=== PATIENT | male | born 1990 | race Caucasian/White ===

== ENCOUNTER 2019-08-13 12:06 | Emergency (ER) | payer OTHER, SELFPAY ==
--- NOTE | ~2019-08-13 | XR_ITS ---
XR hand LT min 3V 08/13/2019 12:52 INDICATION: Left hand pain PROCEDURE: 3 views left hand COMPARISON: No prior studies for comparison. FINDINGS: Fracture, dislocation or subluxation is not identified. The soft tissues appear within norm al limits. No foreign bodies are identified. IMPRESSION: 1: NO ACUTE BONE OR JOINT ABNORMALITY IDENTIFIED. Reviewed, dictated and finalized at location A.
[2019-08-13 12:14] VITALS: BP 149/76; PULSE 76; RESP 18; TEMP 36.3; O2SAT 98
--- NOTE | 2019-08-13 12:38 | ED.WOUNDLAC ---
HPI - Wound/Laceration General Chief Complaint: Wound/Laceration Stated Complaint: LAC L HAND Time Seen by Provider: 08/13/19 12:18 Source: patient Mode of arrival: ambulatory Limitations: no limitations History of Present Illness HPI narrative: This is a 28 year old RHD male that presents to the ER for laceration to left hand. Reports he was using a chainsaw to cut brush and cut the back of his left hand. Reports laceration about the 2nd and 3rd knuckles. He is unsure of his last tetanus vaccine. Denies numbness or decreased range of motion. Related Data Home Medications Medication Instructions Recorded Confirmed No Home Medications 08/13/19 08/13/19 Allergies Allergy/AdvReac Type Severity Reaction Status Date / Time No Known Allergies Allergy Verified 08/13/19 12:18 Review of Systems Review of Systems: Narrative: CONSTITUTIONAL: Denies fever SKIN: Reports laceration MUSCULOSKELETAL: Denies joint pain, or myalgia. NEUROLOGIC: Denies numbness All systems reviewed & are unremarkable except as noted in HPI and below PMFSH Past Medical History Medical History (Updated 08/13/19 @ 13:28 by Coretta Galan PA-C) No significant active problems Social History Social History (Updated 08/13/19 @ 12:48 by Coretta Galan PA-C) Smoking status: Never smoker Gender identity (if verbalized by the patient): Male Exam Narrative: Exam Narrative: GENERAL: Well-appearing, well-nourished, and in no acute distress. HEAD: Normocephalic, atraumatic. EYES: EOMI. EXTREMITIES: Normal range of motion. No edema or obvious deformity. Left hand dorsal surface with 2cm linear laceration over the 2nd and 3rd MCP joints SKIN: Warm, dry, no rash. NEURO: No focal deficits. Alert and oriented x3. PSYCH: Normal mood and affect Course Vital Signs Vital signs: Vital Signs Temperature 97.4 F L 08/13/19 12:14 Pulse Rate 76 08/13/19 12:14 Respiratory Rate 18 08/13/19 12:14 Blood Pressure 149/76 H 08/13/19 12:14 Pulse Oximetry 98 08/13/19 12:14 Temperature 97.4 F L 08/13/19 12:14 Pulse Rate 76 08/13/19 12:14 Respiratory Rate 18 08/13/19 12:14 Blood Pressure 149/76 H 08/13/19 12:14 Pulse Oximetry 98 08/13/19 12:14 Procedures Laceration Laceration 1: Date: 08/13/19 Time: 13:26 Site: hand Side (If applicable): left Size (cm): 2 Description: linear Depth: simple, single layer Local Anesthetic: lidocaine 1% and with epi Amount of anesthesia used (mL): 2 Pre-repair: irrigated ====== Skin Level ====== Skin layer closed with: nylon Size (cm): 5-0 Number of sutures: 4 Technique: simple, interrupted ====== Subcutaneous Layer ====== ====== Muscle Layer ====== ====== Tendon Layer ====== Dressing: Covered with antibiotic ointment, Kerlix and Coban MDM - Wound/Laceration MDM Narrative Medical decision making narrative: Patient presents the emergency department for laceration to left hand sustained just prior to arrival. Left hand x-rays without acute abnormalities. Patient has good range of motion in the fingers. No evidence of tendon involvement. Laceration is fairly superficial. Laceration was irrigated and closed with sutures. He was updated on tetanus. Patient was educated on wound care. He is to follow-up with primary care doctor. He was given warnings to return to the ER Imaging Data Radiologist's impression: ITS Impressions Hand X-Ray 08/13/19 13:04 IMPRESSION: 1: NO ACUTE BONE OR JOINT ABNORMALITY IDENTIFIED. Critical Care Time Critical Care Time Critical Care Time: No Discharge Plan Discharge Clinical Impression: Laceration Patient Disposition: Home, Self-Care Condition: Stable Instructions: Laceration (ED) Additional Instructions: Return to the emergency department if you experience fever, redness or swelling of your
== END 2019-08-13 15:15 | disposition home or self-care (01) ==
PROVIDERS: Emergency Provider Emergency Medicine
DX: S61.412A Laceration without foreign body of left hand, initial encounter (principal); W29.3XXA Contact with powered garden and outdoor hand tools and machinery, initial encounter
CPT/HCPCS: 12001; 73130; 99283